=== PATIENT | female | born 1945 | race Caucasian/White ===

== ENCOUNTER → 2017-06-01 | Outpatient (CLI) | payer OTHER, MEDICARE | LOC: FIMAGING 10:44 | PROVIDERS: ATTEND Nurse Practitioner | DX: R05 Cough (principal); Z85.72 Personal history of non-Hodgkin lymphomas | CPT/HCPCS: 82784-90 ==

== ENCOUNTER 2017-08-24 09:25 | Emergency (ER) | payer OTHER, MEDICARE ==
[2017-08-24] MEDS ORDERED: NS 1,000 ML IV ONE (09:36)
--- NOTE | 2017-08-24 09:47 | CPEKG ---
Heart Rate: 80 RR Interval: 750 P-R Interval: 156 QRSD Interval: 72 QT Interval: 412 QTC Interval: 476 P Webb: 64 QRS Webb: -16 T Wave Webb: 41 EKG Severity - BORDERLINE ECG - EKG Impression: SINUS RHYTHM EKG Impression: PROBABLE LEFT ATRIAL ABNORMALITY EKG Impression: BORDERLINE LEFT AXIS DEVIATION EKG Impression: BORDERLINE T ABNORMALITIES, ANT-LAT LEADS Electronically Signed By: Jennifer Connors 24-Aug-2017 14:58:22
--- NOTE | 2017-08-24 10:44 | EDPHY ---
H & P Time Seen by Provider: 08/24/17 09:55 HPI/ROS: CHIEF COMPLAINT: Syncope HISTORY OF PRESENT ILLNESS: 72-year-old female with lymphoma presents after a syncopal episode. She received a new chemotherapeutic agent 5 days ago, followed by 4 days of IV dexamethasone. She was doing okay until this morning. She has been tolerating oral fluids and food well. This morning, she stood up to go to the kitchen, felt dizzy and then had a witnessed syncopal episode in the kitchen. Her helped her into a chair and then on to the floor. She did not hurt herself. She now feels back to normal and is hungry. REVIEW OF SYSTEMS: Constitutional: No fever, no chills Eyes: No visual changes ENT: No sore throat Respiratory: No cough, no shortness of breath Cardiac: No chest pain Gastrointestinal: no abdominal pain Genitourinary: no dysuria Musculoskeletal: No leg pain or swelling Skin: No rash Neurological: No headache Psychiatric: No anxiety Past Medical/Surgical History: Lymphoma, status post stem cell transplant Hypertension, did not take her usual antihypertensive medications today Social History: Oncologist: Dr. Dodson Smoking Status: Never smoked Physical Exam: General Appearance: Alert, pleasant Eyes: Pupils equal and round, no conjunctival pallor or injection ENT, Mouth: Mucous membranes moist Neck: Normal inspection Respiratory: Lungs are clear to auscultation Cardiovascular: Regular rate and rhythm Gastrointestinal: Abdomen is soft and nontender Neurological: A&O, nonfocal exam Skin: Warm and dry, no rash Extremities: Nontender, no pedal edema Psychiatric: Mood and affect normal Constitutional: Initial Vital Signs Temperature (C) 36.6 C 08/24/17 09:38 Heart Rate 71 08/24/17 09:38 Respiratory Rate 16 08/24/17 09:38 Blood Pressure 158/100 H 08/24/17 09:38 O2 Sat (%) 98 08/24/17 09:38 O2 Delivery Mode Room Air Allergies/Adverse Reactions: Penicillins Allergy (Mild, Verified 05/11/16 07:19) Rash Home Medications: Medication Instructions Recorded Acyclovir 05/11/16 Allopurinol 05/11/16 Quinapril HCl 05/11/16 LORazepam [Ativan] 08/24/17 Medical Decision Making - Diagnostics EKG Interpretation: EKG interpreted by me reveals normal sinus rhythm, rate 80, diffuse T-wave flattening. Interpretation: Borderline EKG ED Course/Re-evaluation: This ipt presents after a syncopal episode. Given recent chemotherapy, most likely vasovagal episode related to dehydration. IV NS 1 liter given. stat EKG reveals no evidence of dysrhythmia. Electrolytes unremarkable. Quite neutropenic, with a WBC count of 0.17. Not febrile and no evidence of infection. Consulted Dr. Salter for neutropenia, will see pt in cancer center this morning. On discharge, and after IVF, pt feels back to normal. Ambulates with a steady gait and wants to go home. Differential Diagnosis: Differential diagnosis includes though is not limited to cardiac dysrhythmia, CVA, TIA, GI bleed, sepsis, hypoglycemia. - Data Points Laboratory Results: Laboratory Results 08/24/17 10:59 08/24/17 10:10 Medications Given: Discontinued Medications Sodium Chloride (Ns) 1,000 mls @ 0 mls/hr IV EDNOW ONE; Wide Open PRN Reason: Protocol Stop: 08/24/17 09:37 Last Admin: 08/24/17 10:19 Dose: 1,000 mls Departure - Departure Disposition: Home, Routine, Self-Care Clinical Impression: Syncope Qualifiers: Syncope type: vasovagal syncope Qualified Code(s): R55 - Syncope and collapse Condition: Good Instructions: Syncope (ED) Additional Instructions: Drink plenty of fluids. Go directly to the cancer center. Ask for Karen. Return for recurrent symptoms or any concerns. Referrals: Elver Khan MD [Primary Care Provider] - As per Instructions Prabhu Dodson MD [Medical Doctor] - As per Instructions (Call to make an appointment.)
[2017-08-24 11:07] LABS: PLATELET COUNT 54 10^3/uL (150-400)
[2017-08-24 11:53] VITALS: BP 135/94; PULSE 84; RESP 20; TEMP 98.2; O2SAT 96
== END 2017-08-24 11:58 | disposition home or self-care (01) ==
LOC: EDAGE → EDUNIT#
DX: R55 Syncope and collapse (principal); I10 Essential (primary) hypertension; E86.9 Volume depletion, unspecified

== ENCOUNTER 2017-08-26 14:17 | Outpatient (CLI) | payer OTHER, MEDICARE ==
[2017-08-26] MEDS ORDERED: ACETAMINOPHEN 325 MG TAB PO ONE (15:00)
[2017-08-26] MEDS ORDERED: diphenhydrAMINE 25 MG CAP PO ONE (15:00)
== END 2017-08-26 16:34 | disposition home or self-care (01) ==
LOC: FOBOP 14:17
PROVIDERS: ATTEND Internal Medicine Hematology & Oncology
PROC: 30233R1 Transfusion of Nonautologous Platelets into Peripheral Vein, Percutaneous Approach (ICD-10-PCS; principal; 2017-08-26)
DX: C85.90 Non-Hodgkin lymphoma, unspecified, unspecified site (principal)
CPT/HCPCS: 36430; J1642

== ENCOUNTER → 2017-08-26 | Outpatient (CLI) | payer OTHER, MEDICARE ==
[~2017-08-26] MED LIST: GADOBUTROL 10 ML VIAL IVP ONE
== END ==
LOC: FIMAGING 10:17
PROVIDERS: ATTEND Physician Assistant
DX: R41.82 Altered mental status, unspecified (principal); C83.30 Diffuse large B-cell lymphoma, unspecified site
CPT/HCPCS: 70553; A9585; J1642

== ENCOUNTER 2017-08-28 15:48 | Outpatient (CLI) | payer OTHER, MEDICARE | END 2017-08-28 17:45 | disposition home or self-care (01) | LOC: FOBOP 15:48 | PROVIDERS: ATTEND Internal Medicine Hematology & Oncology | PROC: 30233R1 Transfusion of Nonautologous Platelets into Peripheral Vein, Percutaneous Approach (ICD-10-PCS; principal; 2017-08-28) | DX: C85.90 Non-Hodgkin lymphoma, unspecified, unspecified site (principal); D80.1 Nonfamilial hypogammaglobulinemia; D70.9 Neutropenia, unspecified; D69.6 Thrombocytopenia, unspecified; E86.0 Dehydration | CPT/HCPCS: 36430; J1642; P9073 ==

== ENCOUNTER 2017-09-25 17:15 | Outpatient (CLI) | payer OTHER, MEDICARE ==
[2017-09-25] MEDS ORDERED: diphenhydrAMINE 25 MG CAP PO ONE (17:30)
[2017-09-25] MEDS ORDERED: ACETAMINOPHEN 325 MG TAB PO ONE (17:30)
== END 2017-09-25 19:00 | disposition home or self-care (01) ==
LOC: FOBOP 17:15
PROVIDERS: ATTEND Internal Medicine Hematology & Oncology
PROC: 30233R1 Transfusion of Nonautologous Platelets into Peripheral Vein, Percutaneous Approach (ICD-10-PCS; principal; 2017-09-25)
DX: C83.39 Diffuse large B-cell lymphoma, extranodal and solid organ sites (principal); D80.1 Nonfamilial hypogammaglobulinemia; D70.1 Agranulocytosis secondary to cancer chemotherapy; E86.0 Dehydration; D69.1 Qualitative platelet defects; D69.6 Thrombocytopenia, unspecified
CPT/HCPCS: 36430; J1642; P9073

== ENCOUNTER 2017-10-13 14:21 | Outpatient (CLI) | payer OTHER, MEDICARE ==
[2017-10-13] MEDS ORDERED: diphenhydrAMINE 25 MG CAP PO ONE (14:45)
[2017-10-13] MEDS ORDERED: ACETAMINOPHEN 325 MG TAB PO ONE (14:45)
== END 2017-10-13 15:45 | disposition home or self-care (01) ==
LOC: FOBOP 14:21
PROVIDERS: ATTEND Internal Medicine Hematology & Oncology
PROC: 30233R1 Transfusion of Nonautologous Platelets into Peripheral Vein, Percutaneous Approach (ICD-10-PCS; principal; 2017-10-13)
DX: C85.90 Non-Hodgkin lymphoma, unspecified, unspecified site (principal); Z88.0 Allergy status to penicillin
CPT/HCPCS: 36430; J1642; P9073

== ENCOUNTER 2017-10-17 14:22 | Outpatient (CLI) | payer OTHER, MEDICARE ==
[2017-10-17] MEDS ORDERED: diphenhydrAMINE 25 MG CAP PO ONE (14:45)
[2017-10-17] MEDS ORDERED: ACETAMINOPHEN 325 MG TAB PO ONE (14:45)
[2017-10-17 19:15] VITALS: BP 137/85
== END 2017-10-17 19:23 | disposition home or self-care (01) ==
LOC: FOBOP 14:22
PROVIDERS: ATTEND Internal Medicine Hematology & Oncology
PROC: 30233R1 Transfusion of Nonautologous Platelets into Peripheral Vein, Percutaneous Approach (ICD-10-PCS; principal; 2017-10-17)
DX: C85.90 Non-Hodgkin lymphoma, unspecified, unspecified site (principal)
CPT/HCPCS: 36430; J1642; P9037

== ENCOUNTER → 2017-10-22 | Outpatient (CLI) | payer OTHER, MEDICARE ==
[~2017-10-22] MED LIST changes: -GADOBUTROL 10 ML VIAL IVP ONE; +IOPAMIDOL (ISOVUE 370) 100 ML BTL IV ONE
== END ==
LOC: FIMAGING 12:48
PROVIDERS: ATTEND Nurse Practitioner
DX: C83.39 Diffuse large B-cell lymphoma, extranodal and solid organ sites (principal); Z45.2 Encounter for adjustment and management of vascular access device
CPT/HCPCS: 76000; Q9967